=== PATIENT | female | born 1940 | race Caucasian/White ===

== ENCOUNTER 2019-02-07 13:40 | Inpatient (IN) | payer MEDICARE ==
[~2019-02-07] VITALS: Ht 149.9 cm; Wt 63.8 kg
[~2019-02-07 13:40] MED LIST: ALPR0.5T6 PO; AMIT10TA PO; AMLO-150 PO; CALCIUM PO; CARV-39 PO; CARV12.543 PO; CYAN25009 PO; DICL100G19 TD; FLUO20CA8 PO; FLUT9.9S INH; FURO20TA3 PO; HYDR25TA6 PO; LANS30CA PO; LEVO25TA4 PO; LEVO750T26 PO; LISI5TAB7 PO; METH4TAB7 PO; METH500T7 PO; OMEG1CAP6 PO; OXCA150T18 PO; OXYC-302 PO; OXYC-307 PO; OXYC10TA47 PO; OXYC5TAB3 PO; POLY17PO5 PO; POTA10CA PO; PRAV40TA2 PO; PREG25CA PO; SENN8.6T98 PO; SULF1TAB24 PO
--- NOTE | 2019-02-07 14:37 | NUR ---
ASSUMED CARE OF PT AT THIS TIME FROM LOBBY. AMBULATORY TO ROOM WITH STEADY GAIT AND TO RESTROOM FOR CLEAN CATCH UA. CLEAN CATCH UA COLLECTED. 78 Y/O F PRESENT TO ER FROM FOR "ABD PAIN STARTING YESTERDAY, IT'S INTENSE, I HAD A BOWEL MOVEMENT YESTERDAY BUT NOTHING SINCE AND I'M NOT REALLY PASSING GAS, I'VE HAD TROUBLES WITH MY BOWELS SINCE I WAS A CHILD." CONT PULSE OX, BP MONITORS APPLIED. VSS. A&OX4. DAUGHTER AT BEDSIDE. CALL LIGHT IN REACH. RATES ABD PAIN 10/10, BOWEL SOUNDS ACTIVE. ABD SOFT, TENDER TO PALPATION IN ALL QUADRATS. DR. CROUCH AT BEDSIDE FOR EVALUATION. DAUGHTER AT BEDSIDE. FALL PRECUATIONS IN PLACE.
[2019-02-07] MEDS ORDERED: ONDANSETRON 2MG/ML, 2ML ONE (14:50)
[2019-02-07] MEDS ORDERED: HYDROmorphone 1 MG/ML, 1ML ONE (14:50)
[2019-02-07 14:54] LABS: BASOPHILS # (AUTO) 0.03 x10^3/uL (0-0.1); BASOPHILS % (AUTO) 0 % (0-1); EOSINOPHILS # (AUTO) 0.43 x10^3/uL (0-0.4); EOSINOPHILS % (AUTO) 3 % (1-7); LYMPHOCYTES # (AUTO) 1.75 x10^3/uL (1-3.4); LYMPHOCYTES % (AUTO) 11 % (22-44); MD NO; MEAN CORPUSCULAR HEMOGLOBIN 30.7 pg (27.0-34.8); MEAN CORPUSCULAR HGB CONC 33.6 g/dL (32.4-35.8); MEAN CORPUSCULAR VOLUME 91.3 fL (80-100); MONOCYTES # (AUTO) 0.88 x10^3/uL (0.2-0.8); MONOCYTES % (AUTO) 6 % (2-9); NEUTROPHILS # (AUTO) 12.39 x10^3/uL (1.8-6.8); NEUTROPHILS % (AUTO) 80 % (42-75); PLATELET COUNT 269 x10^3/uL (130-400); RED BLOOD COUNT 3.97 x10^6/uL (3.82-5.3); RED CELL DISTRIBUTION WIDTH 12.4 % (9.6-15.2)
[2019-02-07 14:56] LABS: MICROSCOPIC INDICATED
[2019-02-07 14:57] LABS: CULTURE INDICATED? YES
[2019-02-07] MEDS ORDERED: SODIUM CHLORIDE FLUSH 10ML SYR IVF ONE (15:00)
[2019-02-07] MEDS ORDERED: ONDANSETRON 2MG/ML, 2ML IVPush ONE (15:00)
[2019-02-07] MEDS ORDERED: HYDROmorphone 2 MG/ML, 1ML IVPush PRN (15:00)
--- NOTE | 2019-02-07 15:00 | NUR ---
REPORT AND CARE TO BREAK EDUARDO REED.
[2019-02-07 15:04] LABS: ALBUMIN 3.1 g/dL (3.4-5.0); ANION GAP 6 mmol/L (5-15); CALCIUM 8.9 mg/dL (8.5-10.1); CHLORIDE 107 mmol/L (98-107)
--- NOTE | 2019-02-07 15:05 | NUR ---
BREAK RN FOR IV START AND [employer] OPERATOR
[2019-02-07 15:08] LABS: ALANINE AMINOTRANSFERASE 14 U/L (12-78); ALKALINE PHOSPHATASE 120 U/L (45-117); BILIRUBIN,TOTAL 0.8 mg/dL (0.2-1.0); CREATININE 0.97 mg/dL (0.55-1.02); TOTAL PROTEIN 7.1 g/dL (6.4-8.2)
--- NOTE | 2019-02-07 15:40 | NUR ---
PT IN CT.
--- NOTE | 2019-02-07 15:55 | NUR ---
PT BACK CT, NAD NOTED. RESP REGULAR AND UNLABORED. FAMILY AT BEDSIDE. VSS. DENIES NEED TO USE RESTROOM. PT IN GOOD SPIRITS AND TALKATIVE.
[2019-02-07] MEDS ORDERED: OMNIPAQUE 350 MG/ML, 100ML BOTTLE ONE (16:00)
--- NOTE | 2019-02-07 16:19 | NUR ---
DR. CROUCH AT BEDSIDE FOR RECHECK, DISCUSSING POC WITH PT AND DAUGHTER, RECOMMENDING ADMISSION TO HOSPITAL.
--- NOTE | 2019-02-07 16:28 | NUR ---
LAB AT BEDSIDE FOR BLOOD CULTURES, BLOOD CULTURES TO BE DRAWNX2 PRIOR TO ANTIBIOTIC ADMIN PER DR. CROUCH.
[2019-02-07] MEDS ORDERED: CEFTRIAXONE PMX 1GM/50ML 50 ML ONE (16:29)
[2019-02-07] MEDS ORDERED: METRONIDAZOLE PMX 500MG/100ML 100 ML IVPB ONE (16:30)
[2019-02-07] MEDS ORDERED: CEFTRIAXONE PMX 1GM/50ML 50 ML IVPB ONE (16:30)
--- NOTE | 2019-02-07 16:52 | NUR ---
IV ANTIBIOTIC INFUSING PER ORDER ON IV PUMP, VERIFIED BLOOD CULTURES DRAWNX2 PRIOR TO ADMIN. TO ADMIN FLAGYL AFTER ROCEPHIN COMPLETED, DISCUSSED PT PCN ALLERGY WITH DR. CROUCH, AWARE, ROCEPHIN ADMIN PER MD ORDER. PT PROVIDED WATER PER REQUEST AND DR. CROUCH, TOLATERATING PO WELL. DENIES NEED TO USE RESTROOM. CONTINUES TO REFUSE NEED FOR PAIN MEDICATION, TO CALL IF PAIN MEDICATION NEEDED. CALL LIGHT IN REACH. VSS.
[2019-02-07] MEDS ORDERED: SODIUM CHLORIDE FLUSH 10ML SYR IVF PRN (17:00)
--- NOTE | 2019-02-07 17:20 | NUR ---
ADMITTING PROVIDER AT BEDSIDE FOR EVALUATION. IV ROCEPHINE CONTINUES INFUSING, PT IV POSITIONAL TO WRIST MOVEMENT, TOWEL PLACED TO ASSIST PT TO KEEP WRIST/IV PATENT. CALL LIGHT IN REACH. VSS. FALL PRECAUTIONS IN PLACE.
--- NOTE | 2019-02-07 17:28 | NUR ---
ROOM 355 RECEIVED, PHONE/VERBAL REPORT TO NILA CLARK. DISCUSSED NEED FOR IV FLAGYL S/P ROCEPHIN ANTIBIOTIC COMPLETION. NILA AWARE, TO ADMIN ONCE ROCEPHIN COMPLETED. PER DR. CROUCH PT MAY BE TRANSFERED TO FLOOR PRIOR TO FLAGYL ADMIN ROCEPHIN STILL INFUSING. PT AWAITING TRANSPORT.
[2019-02-07] MEDS ORDERED: DOCUSATE 100 MG CAPSULE PO PRN (17:30)
[2019-02-07] MEDS ORDERED: morphine SULFATE 10 MG/ML, 1ML IVPush PRN (17:30)
[2019-02-07] MEDS ORDERED: POLYETHYLENE GLYCOL 17 GM PACKET PO PRN (17:30)
[2019-02-07] MEDS: CEFTRIAXONE PMX 2GM/50ML 50 ML IV SCH (17:30)
[2019-02-07] MEDS ORDERED: hydrALAzine 20 MG/ML, 1ML IVPush PRN (17:30)
[2019-02-07] MEDS ORDERED: LABETALOL 5MG/ML, 20ML IVPush PRN (17:30)
[2019-02-07] MEDS ORDERED: BISACODYL 10 MG SUPP PR PRN (17:30)
[2019-02-07] MEDS ORDERED: GABAPENTIN 300 MG CAPSULE PO PRN (17:30)
[2019-02-07] MEDS: METRONIDAZOLE PMX 500MG/100ML 100 ML IV SCH (18:33)
[2019-02-07] MEDS: HEPARIN 5,000 UNITS/ML, 1ML SQ SCH (18:34)
[2019-02-07] MEDS: SODIUM CHLORIDE 0.9% 1,000 ML IV SCH (18:34)
[2019-02-07 19:18] LABS: BASOPHILS # (AUTO) 0.05 x10^3/uL (0-0.1); BASOPHILS % (AUTO) 0 % (0-1); EOSINOPHILS # (AUTO) 0.46 x10^3/uL (0-0.4); EOSINOPHILS % (AUTO) 3 % (1-7); LYMPHOCYTES # (AUTO) 2.04 x10^3/uL (1-3.4); LYMPHOCYTES % (AUTO) 15 % (22-44); MD NO; MEAN CORPUSCULAR HEMOGLOBIN 30.8 pg (27.0-34.8); MEAN CORPUSCULAR HGB CONC 33.8 g/dL (32.4-35.8); MEAN CORPUSCULAR VOLUME 91.2 fL (80-100); MEAN PLATELET VOLUME 7.6 fL (7.4-10.4); MONOCYTES # (AUTO) 0.85 x10^3/uL (0.2-0.8); MONOCYTES % (AUTO) 6 % (2-9); NEUTROPHILS # (AUTO) 10.08 x10^3/uL (1.8-6.8); NEUTROPHILS % (AUTO) 75 % (42-75); PLATELET COUNT 246 x10^3/uL (130-400); RED BLOOD COUNT 3.72 x10^6/uL (3.82-5.3)
[2019-02-07 19:28] LABS: GAMMA GLUTAMYL TRANSPEPTIDASE 16 U/L (5-55)
[2019-02-07 19:37] LABS: FREE T4 (FREE THYROXINE) 2.54 ng/dL (0.76-1.46)
[2019-02-07 19:39] LABS: THYROID STIMULATING HORMONE < 0.005 mIU/L (0.358-3.740)
[2019-02-07] MEDS ORDERED: CARVEDILOL 12.5 MG TABLET PO SCH (21:00)
[2019-02-07 21:14] VITALS: BP 116/58
[2019-02-07] MEDS: FAMOTIDINE 20 MG/2 ML IVPush SCH (21:38)
[2019-02-07] MEDS: PRAVASTATIN 40 MG TABLET PO SCH (21:39)
[2019-02-07] MEDS: CARVEDILOL 12.5 MG TABLET PO SCH (21:39)
[2019-02-07] MEDS: PREGABALIN 25 MG CAPSULE PO SCH (21:39)
[2019-02-08] MEDS: METRONIDAZOLE PMX 500MG/100ML 100 ML IV SCH ×4 (00:16→18:35)
[2019-02-08 04:00] VITALS: BP 108/51
[2019-02-08] MEDS: SODIUM CHLORIDE 0.9% 1,000 ML IV SCH ×2 (05:00→14:22)
[2019-02-08 05:20] LABS: ALBUMIN 2.6 g/dL (3.4-5.0); ANION GAP 6 mmol/L (5-15); CALCIUM 8.4 mg/dL (8.5-10.1); CHLORIDE 111 mmol/L (98-107)
[2019-02-08 05:25] LABS: ALANINE AMINOTRANSFERASE 9 U/L (12-78); ALKALINE PHOSPHATASE 103 U/L (45-117); BILIRUBIN,TOTAL 0.8 mg/dL (0.2-1.0); CREATININE 0.83 mg/dL (0.55-1.02); TOTAL PROTEIN 5.9 g/dL (6.4-8.2)
[2019-02-08] MEDS: HEPARIN 5,000 UNITS/ML, 1ML SQ SCH ×3 (06:03→22:00)
[2019-02-08 07:48] VITALS: BP 96/56
[2019-02-08] MEDS ORDERED: LISINOPRIL 5 MG TABLET PO SCH (09:00)
[2019-02-08] MEDS ORDERED: PREGABALIN 25 MG CAPSULE PO SCH (09:00)
[2019-02-08] MEDS ORDERED: LEVOTHYROXINE 100 MCG TABLET PO SCH (09:00)
[2019-02-08] MEDS: FLUOXETINE HCL 20 MG CAPSULE PO SCH (09:39)
[2019-02-08] MEDS: OXCARBAZEPINE 150 MG TABLET PO SCH (09:39)
[2019-02-08] MEDS: FAMOTIDINE 20 MG/2 ML IVPush SCH ×2 (09:39→21:05)
[2019-02-08] MEDS: CYANOCOBALAMIN 1,000 MCG TABLET PO SCH (09:40)
[2019-02-08] MEDS: CARVEDILOL 12.5 MG TABLET PO SCH ×2 (09:41→19:17)
[2019-02-08] MEDS: AMITRIPTYLINE 10 MG TABLET PO SCH (09:41)
[2019-02-08] MEDS: ACETAMINOPHEN 325 MG TABLET PO PRN (09:51)
[2019-02-08] MEDS ORDERED: LORazepam 2 MG/ML, 1ML ONE (11:06)
[2019-02-08 14:29] VITALS: BP 95/45
[2019-02-08] MEDS: CEFTRIAXONE PMX 2GM/50ML 50 ML IV SCH (17:49)
[2019-02-08 19:08] VITALS: BP 104/43
[2019-02-08] MEDS: PRAVASTATIN 40 MG TABLET PO SCH (21:05)
[2019-02-08] MEDS: PREGABALIN 25 MG CAPSULE PO SCH (21:05)
[2019-02-09] MEDS: SODIUM CHLORIDE 0.9% 1,000 ML IV SCH ×2 (00:05→15:26)
[2019-02-09] MEDS: METRONIDAZOLE PMX 500MG/100ML 100 ML IV SCH ×2 (00:05→06:02)
[2019-02-09] MEDS: ACETAMINOPHEN 325 MG TABLET PO PRN ×2 (00:54→21:39)
[2019-02-09 02:29] VITALS: BP 103/53
[2019-02-09 05:00] LABS: BASOPHILS # (AUTO) 0.02 x10^3/uL (0-0.1); BASOPHILS % (AUTO) 0 % (0-1); EOSINOPHILS # (AUTO) 0.42 x10^3/uL (0-0.4); EOSINOPHILS % (AUTO) 7 % (1-7); LYMPHOCYTES # (AUTO) 1.75 x10^3/uL (1-3.4); LYMPHOCYTES % (AUTO) 28 % (22-44); MD NO; MEAN CORPUSCULAR HGB CONC 33.9 g/dL (32.4-35.8); MEAN CORPUSCULAR VOLUME 91.4 fL (80-100); MEAN PLATELET VOLUME 7.8 fL (7.4-10.4); MONOCYTES % (AUTO) 10 % (2-9); NEUTROPHILS # (AUTO) 3.51 x10^3/uL (1.8-6.8); NEUTROPHILS % (AUTO) 56 % (42-75); PLATELET COUNT 224 x10^3/uL (130-400); RED BLOOD COUNT 3.24 x10^6/uL (3.82-5.3); RED CELL DISTRIBUTION WIDTH 12.7 % (9.6-15.2)
[2019-02-09 05:08] LABS: ALBUMIN 2.4 g/dL (3.4-5.0); ANION GAP 5 mmol/L (5-15); CALCIUM 8.5 mg/dL (8.5-10.1); CHLORIDE 114 mmol/L (98-107)
[2019-02-09 05:09] LABS: CREATININE 0.73 mg/dL (0.55-1.02)
[2019-02-09] MEDS: HEPARIN 5,000 UNITS/ML, 1ML SQ SCH ×3 (06:02→21:05)
[2019-02-09 08:23] VITALS: BP 120/60
[2019-02-09] MEDS: CARVEDILOL 12.5 MG TABLET PO SCH ×2 (09:07→21:05)
[2019-02-09] MEDS: OXCARBAZEPINE 150 MG TABLET PO SCH (09:07)
[2019-02-09] MEDS: CYANOCOBALAMIN 1,000 MCG TABLET PO SCH (09:08)
[2019-02-09] MEDS: FAMOTIDINE 20 MG/2 ML IVPush SCH ×2 (09:08→21:05)
[2019-02-09] MEDS: FLUOXETINE HCL 20 MG CAPSULE PO SCH (09:08)
[2019-02-09] MEDS: AMITRIPTYLINE 10 MG TABLET PO SCH (09:08)
[2019-02-09] MEDS ORDERED: METRONIDAZOLE PMX 500MG/100ML 100 ML IV SCH (09:30)
[2019-02-09] MEDS: metroNIDAZOLE 500 MG TABLET PO SCH ×2 (09:56→17:56)
[2019-02-09] MEDS: CEFDINIR 300 MG CAPSULE PO SCH ×2 (09:56→21:04)
[2019-02-09] MEDS ORDERED: OMNIPAQUE 350 MG/ML, 100ML BOTTLE ONE (12:48)
[2019-02-09 13:27] VITALS: BP 127/64
[2019-02-09 18:47] VITALS: BP 123/58
[2019-02-09] MEDS: PREGABALIN 25 MG CAPSULE PO SCH (21:05)
[2019-02-09] MEDS: PRAVASTATIN 40 MG TABLET PO SCH (21:05)
[2019-02-09] MEDS: FLUTICASONE NASAL SPRAY 16GM NAS PRN (21:39)
[2019-02-10] MEDS: SODIUM CHLORIDE 0.9% 1,000 ML IV SCH ×3 (00:03→21:01)
[2019-02-10 02:26] VITALS: BP 121/60
[2019-02-10] MEDS: HEPARIN 5,000 UNITS/ML, 1ML SQ SCH ×3 (05:04→21:01)
[2019-02-10] MEDS: metroNIDAZOLE 500 MG TABLET PO SCH ×3 (05:04→21:02)
[2019-02-10 05:35] LABS: ALBUMIN 2.8 g/dL (3.4-5.0); ANION GAP 6 mmol/L (5-15); CALCIUM 8.5 mg/dL (8.5-10.1); CHLORIDE 115 mmol/L (98-107); CREATININE 0.64 mg/dL (0.55-1.02)
[2019-02-10] MEDS ORDERED: POTASSIUM CHLORIDE 60 MEQ in SODIUM CHLORIDE 0.9% 1,000 ML IV ONE (06:30)
[2019-02-10 08:15] VITALS: BP 148/82
[2019-02-10] MEDS: CARVEDILOL 12.5 MG TABLET PO SCH ×2 (09:05→21:01)
[2019-02-10] MEDS: CYANOCOBALAMIN 1,000 MCG TABLET PO SCH (09:05)
[2019-02-10] MEDS: FLUOXETINE HCL 20 MG CAPSULE PO SCH (09:05)
[2019-02-10] MEDS: FAMOTIDINE 20 MG/2 ML IVPush SCH ×2 (09:05→21:01)
[2019-02-10] MEDS: CEFDINIR 300 MG CAPSULE PO SCH ×2 (09:05→21:01)
[2019-02-10] MEDS: OXCARBAZEPINE 150 MG TABLET PO SCH (09:05)
[2019-02-10] MEDS: AMITRIPTYLINE 10 MG TABLET PO SCH (09:05)
[2019-02-10] MEDS: DOXYCYCLINE 100MG TABLET PO SCH ×2 (09:11→21:01)
[2019-02-10 14:02] VITALS: BP 125/71
[2019-02-10] MEDS ORDERED: ATOR20TA86 PO (17:21)
[2019-02-10] MEDS ORDERED: AMIT100T PO (17:21)
[2019-02-10] MEDS ORDERED: LANS30TA8 PO (17:21)
[2019-02-10] MEDS ORDERED: LEVO100V PO (17:21)
[2019-02-10] MEDS ORDERED: FURO40TA6 PO (17:21)
[2019-02-10] MEDS ORDERED: CARV25TA PO (17:21)
[2019-02-10] MEDS ORDERED: AMLO5TAB10 PO (17:21)
[2019-02-10] MEDS ORDERED: CYCL5TAB PO (17:21)
[2019-02-10] MEDS ORDERED: PREG20SO PO (17:21)
[2019-02-10 17:51] LABS: BASOPHILS # (AUTO) 0.02 x10^3/uL (0-0.1); BASOPHILS % (AUTO) 1 % (0-1); EOSINOPHILS % (AUTO) 6 % (1-7); LYMPHOCYTES # (AUTO) 1.58 x10^3/uL (1-3.4); LYMPHOCYTES % (AUTO) 29 % (22-44); MD NO; MEAN CORPUSCULAR HEMOGLOBIN 30.7 pg (27.0-34.8); MEAN CORPUSCULAR HGB CONC 33.7 g/dL (32.4-35.8); MEAN PLATELET VOLUME 7.6 fL (7.4-10.4); MONOCYTES # (AUTO) 0.55 x10^3/uL (0.2-0.8); MONOCYTES % (AUTO) 10 % (2-9); NEUTROPHILS # (AUTO) 2.96 x10^3/uL (1.8-6.8); NEUTROPHILS % (AUTO) 55 % (42-75); PLATELET COUNT 277 x10^3/uL (130-400); RED CELL DISTRIBUTION WIDTH 12.5 % (9.6-15.2)
[2019-02-10 18:38] LABS: FREE T4 (FREE THYROXINE) 1.97 ng/dL (0.76-1.46)
[2019-02-10 18:39] LABS: THYROID STIMULATING HORMONE < 0.005 mIU/L (0.358-3.740)
[2019-02-10 18:59] VITALS: BP 106/47
[2019-02-10] MEDS: PRAVASTATIN 40 MG TABLET PO SCH (21:01)
[2019-02-10] MEDS: PREGABALIN 25 MG CAPSULE PO SCH (21:01)
[2019-02-10 22:36] LABS: MICROSCOPIC AUTO
[2019-02-10 22:39] LABS: CULTURE INDICATED? YES
[2019-02-11 03:24] VITALS: BP 99/60
[2019-02-11] MEDS: metroNIDAZOLE 500 MG TABLET PO SCH ×3 (05:02→22:50)
[2019-02-11] MEDS: HEPARIN 5,000 UNITS/ML, 1ML SQ SCH ×3 (05:03→22:49)
[2019-02-11 06:18] LABS: BASOPHILS # (AUTO) 0.02 x10^3/uL (0-0.1); BASOPHILS % (AUTO) 0 % (0-1); EOSINOPHILS # (AUTO) 0.29 x10^3/uL (0-0.4); EOSINOPHILS % (AUTO) 6 % (1-7); LYMPHOCYTES # (AUTO) 1.68 x10^3/uL (1-3.4); LYMPHOCYTES % (AUTO) 34 % (22-44); MD NO; MEAN CORPUSCULAR HEMOGLOBIN 30.2 pg (27.0-34.8); MEAN CORPUSCULAR HGB CONC 33.2 g/dL (32.4-35.8); MEAN CORPUSCULAR VOLUME 90.9 fL (80-100); MEAN PLATELET VOLUME 7.8 fL (7.4-10.4); MONOCYTES % (AUTO) 12 % (2-9); NEUTROPHILS # (AUTO) 2.29 x10^3/uL (1.8-6.8); NEUTROPHILS % (AUTO) 47 % (42-75); PLATELET COUNT 274 x10^3/uL (130-400); RED BLOOD COUNT 3.53 x10^6/uL (3.82-5.3); RED CELL DISTRIBUTION WIDTH 13.1 % (9.6-15.2)
[2019-02-11 06:30] LABS: ALANINE AMINOTRANSFERASE 13 U/L (12-78); ALBUMIN 2.7 g/dL (3.4-5.0); ANION GAP 7 mmol/L (5-15); CALCIUM 8.5 mg/dL (8.5-10.1); CHLORIDE 111 mmol/L (98-107)
[2019-02-11 06:33] LABS: ALKALINE PHOSPHATASE 95 U/L (45-117); BILIRUBIN,TOTAL 0.4 mg/dL (0.2-1.0)
[2019-02-11 06:41] VITALS: BP 129/61
[2019-02-11] MEDS ORDERED: POTASSIUM CHLORIDE 20 MEQ TAB.ER.PRT PO ONE (07:00)
[2019-02-11] MEDS: SODIUM CHLORIDE 0.9% 1,000 ML IV SCH ×2 (07:37→17:32)
[2019-02-11] MEDS: OXCARBAZEPINE 150 MG TABLET PO SCH (07:38)
[2019-02-11] MEDS: DOXYCYCLINE 100MG TABLET PO SCH ×2 (07:38→22:50)
[2019-02-11] MEDS: AMITRIPTYLINE 10 MG TABLET PO SCH (07:38)
[2019-02-11] MEDS: CARVEDILOL 12.5 MG TABLET PO SCH ×2 (07:38→22:50)
[2019-02-11] MEDS: FAMOTIDINE 20 MG/2 ML IVPush SCH ×2 (07:38→22:50)
[2019-02-11] MEDS: CYANOCOBALAMIN 1,000 MCG TABLET PO SCH (07:38)
[2019-02-11] MEDS: CEFDINIR 300 MG CAPSULE PO SCH ×2 (07:39→22:49)
[2019-02-11] MEDS: FLUOXETINE HCL 20 MG CAPSULE PO SCH (07:55)
[2019-02-11 12:13] VITALS: BP 141/77
[2019-02-11 19:01] VITALS: BP 140/48
[2019-02-11] MEDS: PREGABALIN 25 MG CAPSULE PO SCH (22:49)
[2019-02-11] MEDS: PRAVASTATIN 40 MG TABLET PO SCH (22:50)
[2019-02-11] MEDS: FLUTICASONE NASAL SPRAY 16GM NAS PRN (22:54)
[2019-02-12 01:15] VITALS: BP 116/48
[2019-02-12] MEDS: SODIUM CHLORIDE 0.9% 1,000 ML IV SCH (04:56)
[2019-02-12] MEDS: HEPARIN 5,000 UNITS/ML, 1ML SQ SCH (05:00)
[2019-02-12] MEDS: metroNIDAZOLE 500 MG TABLET PO SCH ×2 (05:00→13:05)
[2019-02-12 07:54] VITALS: BP 135/70
[2019-02-12] MEDS: FAMOTIDINE 20 MG/2 ML IVPush SCH (09:48)
[2019-02-12] MEDS: FLUOXETINE HCL 20 MG CAPSULE PO SCH (09:50)
[2019-02-12] MEDS: CEFDINIR 300 MG CAPSULE PO SCH (09:50)
[2019-02-12] MEDS: OXCARBAZEPINE 150 MG TABLET PO SCH (09:52)
[2019-02-12] MEDS: CARVEDILOL 12.5 MG TABLET PO SCH (09:52)
[2019-02-12] MEDS: DOXYCYCLINE 100MG TABLET PO SCH (09:52)
[2019-02-12] MEDS: AMITRIPTYLINE 10 MG TABLET PO SCH (09:52)
[2019-02-12] MEDS: CYANOCOBALAMIN 1,000 MCG TABLET PO SCH (09:52)
[2019-02-12] MEDS ORDERED: METR500T PO (12:11)
[2019-02-12] MEDS ORDERED: CEFD300C37 PO (12:11)
[2019-02-12] MEDS ORDERED: LEVO75TA PO (12:13)
== END 2019-02-12 13:38 | disposition home health service (06) | DRG 391 ==
LOC: ED 16:48 → INTOOBSV 16:49 → 3NE 16:49 → OBSVTOIN 16:49
PROVIDERS: ADMIT Hospitalist; ATTEND Hospitalist
DX: A09 Infectious gastroenteritis and colitis, unspecified (principal); J12.9 Viral pneumonia, unspecified; G93.40 Encephalopathy, unspecified; K80.20 Calculus of gallbladder without cholecystitis without obstruction; N30.90 Cystitis, unspecified without hematuria; B96.20 Unspecified Escherichia coli [E. coli] as the cause of diseases classified elsewhere; G89.4 Chronic pain syndrome; E03.9 Hypothyroidism, unspecified; E05.90 Thyrotoxicosis, unspecified without thyrotoxic crisis or storm; I10 Essential (primary) hypertension; Z60.2 Problems related to living alone; F32.9 Major depressive disorder, single episode, unspecified; M19.90 Unspecified osteoarthritis, unspecified site; M54.9 Dorsalgia, unspecified; E87.6 Hypokalemia; M54.2 Cervicalgia; E78.5 Hyperlipidemia, unspecified; G25.81 Restless legs syndrome; K59.09 Other constipation; Z88.0 Allergy status to penicillin; Z90.710 Acquired absence of both cervix and uterus; Z90.49 Acquired absence of other specified parts of digestive tract; Z88.1 Allergy status to other antibiotic agents
CPT/HCPCS: 36415; 70450; 71046; 71275; 74177; 76700; 80048; 80053; 81001; 82040; 82140; 82306; 82977; 83605; 83690; 83735; 84100; 84439; 84443; 85025; 85379; 87040; 87077; 87086; 87186; 90656; 93005; 96374; 96375; 99285; G0378; J0696; J1170; J1644; J2405; J3480; Q9967; 92522-GN; J3490; J7030

== ENCOUNTER 2019-06-01 11:57 | Inpatient (IN) | payer MEDICARE ==
[~2019-06-01] VITALS: Ht 157.5 cm; Wt 63.1 kg
[~2019-06-01 11:57] MED LIST changes: +AMIT100T PO; +AMLO5TAB10 PO; +ATOR20TA86 PO; +CARV25TA PO; +CEFD300C37 PO; +CYCL5TAB PO; +FURO40TA6 PO; +LANS30TA8 PO; +LEVO100V PO; +LEVO75TA PO; +METR500T PO; +PREG20SO PO
--- NOTE | 2019-06-01 12:25 | NUR ---
TASK RN: THIS IS A 78 Y/O FEMALE THAT ARRIVES TO ED WITH C/O CHEST PAIN AND SOB. PT REPROTS HER COUGHING SPELLS ARE MAKING HER DIZZY. PT DOES REPORT THAT SHE HAS BEEN NOT FEELING WELL FOR A FEW DAYS. PT REPORTS GETTING WORSE AND UNABLE TO IMPROVE HER CONDITION. PT CONNECTED TO MONITORS AND CALL LIGHT IN REACH. AWAITING FURTHER ORDERS.
--- NOTE | 2019-06-01 12:27 | NUR ---
REPORT FROM BREAK PRISCA CLARK. ASSUMED CARE OF PATIENT AT THIS TIME. 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 NADN. AWAITING XRAY AND LAB.
[2019-06-01] MEDS ORDERED: AZITHROMYCIN 500 MG in SODIUM CHLORIDE 0.9% 250 ML IV ONE (13:00)
[2019-06-01] MEDS ORDERED: CEFTRIAXONE PMX 1GM/50ML 50 ML IV ONE (13:00)
[2019-06-01] MEDS ORDERED: CEFTRIAXONE PMX 1GM/50ML 50 ML ONE (13:12)
[2019-06-01 13:16] LABS: BASOPHILS # (AUTO) 0.02 x10^3/uL (0-0.1); BASOPHILS % (AUTO) 0 % (0-1); EOSINOPHILS # (AUTO) 0.65 x10^3/uL (0-0.4); EOSINOPHILS % (AUTO) 8 % (1-7); LYMPHOCYTES # (AUTO) 1.73 x10^3/uL (1-3.4); LYMPHOCYTES % (AUTO) 21 % (22-44); MD NO; MEAN CORPUSCULAR HEMOGLOBIN 28.8 pg (27.0-34.8); MEAN CORPUSCULAR HGB CONC 32.5 g/dL (32.4-35.8); MEAN CORPUSCULAR VOLUME 88.7 fL (80-100); MEAN PLATELET VOLUME 6.2 fL (7.4-10.4); MONOCYTES # (AUTO) 0.95 x10^3/uL (0.2-0.8); MONOCYTES % (AUTO) 11 % (2-9); NEUTROPHILS # (AUTO) 5.02 x10^3/uL (1.8-6.8); NEUTROPHILS % (AUTO) 60 % (42-75); PLATELET COUNT 404 x10^3/uL (130-400); RED BLOOD COUNT 4.04 x10^6/uL (3.82-5.3); RED CELL DISTRIBUTION WIDTH 13.5 % (9.6-15.2)
--- NOTE | 2019-06-01 13:22 | NUR ---
IV ESTABLISHED, VS UDATED IN CHART, BLOOD CULTURES DRAWN X 2 PRIOR TO ABX ADMINISTRATION. [facility] AWAITING FURTHER ORDERS.
[2019-06-01 13:27] LABS: ALANINE AMINOTRANSFERASE 17 U/L (12-78); ALBUMIN 3.2 g/dL (3.4-5.0); ANION GAP 8 mmol/L (5-15); CALCIUM 8.7 mg/dL (8.5-10.1); CHLORIDE 99 mmol/L (98-107); CREATININE 1.14 mg/dL (0.55-1.02)
[2019-06-01 13:28] LABS: ALKALINE PHOSPHATASE 131 U/L (45-117); BILIRUBIN,TOTAL 0.3 mg/dL (0.2-1.0); TOTAL PROTEIN 7.7 g/dL (6.4-8.2)
--- NOTE | 2019-06-01 13:43 | NUR ---
RESULTS BACK, CHART UP FOR RECHECK.
--- NOTE | 2019-06-01 14:26 | NUR ---
PATIENT POOR HISTORIAN WITH MEDICATIONS, UNABLE TO COMPLETE MED REC. PATIENT TO CALL DAUGHTER FOR UP TO DATE LIST.
[2019-06-01] MEDS ORDERED: morphine SULFATE 10 MG/ML, 1ML IVPush PRN (14:30)
[2019-06-01] MEDS ORDERED: ONDANSETRON 2MG/ML, 2ML IVPush PRN (14:30)
[2019-06-01] MEDS ORDERED: GABAPENTIN 300 MG CAPSULE PO PRN (14:30)
[2019-06-01] MEDS ORDERED: hydrALAzine 20 MG/ML, 1ML IVPush PRN (14:30)
[2019-06-01] MEDS ORDERED: ACETAMINOPHEN 325 MG TABLET PO PRN (14:30)
--- NOTE | 2019-06-01 14:48 | NUR ---
PATIENT STATES SHE IS UNABLE TO GET AHOLD OF DAUGHTER FOR UPDATED MED LIST. PATIENT SITTING COMFORTABLY, RESTING IN GURNEY, A+OX4.
--- NOTE | 2019-06-01 15:08 | NUR ---
REPORT TO EDUARDO VAUGHN. PATIENT UPDATED ON POC, NADN. AWAITING TRANSPORT.
--- NOTE | 2019-06-01 15:11 | NUR ---
PATIENT BEING TRANFERRED/ADMITTED TO HOSPITAL BED UPSTAIRS AT THIS TIME.
[2019-06-01 15:31] VITALS: BP 111/71
[2019-06-01] MEDS: D5%-0.45NACL+KCL 20MEQ 1,000 ML IV SCH (17:03)
[2019-06-01 18:54] VITALS: BP 127/68
[2019-06-01 19:54] LABS: TROPONIN I < 0.015 ng/mL (0.000-0.045)
[2019-06-01] MEDS: CARVEDILOL 12.5 MG TABLET PO SCH (20:02)
[2019-06-02 00:48] LABS: TROPONIN I < 0.015 ng/mL (0.000-0.045)
[2019-06-02 01:48] VITALS: BP 117/71
[2019-06-02] MEDS: LEVOTHYROXINE 75 MCG TABLET PO SCH (05:03)
[2019-06-02] MEDS: D5%-0.45NACL+KCL 20MEQ 1,000 ML IV SCH ×2 (05:03→21:47)
[2019-06-02 05:28] LABS: BASOPHILS # (AUTO) 0.02 x10^3/uL (0-0.1); BASOPHILS % (AUTO) 0 % (0-1); EOSINOPHILS # (AUTO) 0.62 x10^3/uL (0-0.4); EOSINOPHILS % (AUTO) 10 % (1-7); LYMPHOCYTES # (AUTO) 1.39 x10^3/uL (1-3.4); LYMPHOCYTES % (AUTO) 22 % (22-44); MD NO; MEAN CORPUSCULAR HEMOGLOBIN 29.1 pg (27.0-34.8); MEAN CORPUSCULAR HGB CONC 32.6 g/dL (32.4-35.8); MEAN CORPUSCULAR VOLUME 89.4 fL (80-100); MEAN PLATELET VOLUME 6.4 fL (7.4-10.4); MONOCYTES # (AUTO) 0.75 x10^3/uL (0.2-0.8); MONOCYTES % (AUTO) 12 % (2-9); NEUTROPHILS # (AUTO) 3.47 x10^3/uL (1.8-6.8); NEUTROPHILS % (AUTO) 56 % (42-75); PLATELET COUNT 366 x10^3/uL (130-400); RED BLOOD COUNT 3.87 x10^6/uL (3.82-5.3); RED CELL DISTRIBUTION WIDTH 13.7 % (9.6-15.2)
[2019-06-02 05:33] LABS: ANION GAP 5 mmol/L (5-15); CALCIUM 8.7 mg/dL (8.5-10.1); CHLORIDE 103 mmol/L (98-107); CREATININE 1.01 mg/dL (0.55-1.02)
[2019-06-02] MEDS ORDERED: PANTOPROZOLE 40MG TABLET PO SCH (07:00)
[2019-06-02 07:46] VITALS: BP 138/77
[2019-06-02] MEDS: OXCARBAZEPINE 150 MG TABLET PO SCH (08:09)
[2019-06-02] MEDS: LISINOPRIL 5 MG TABLET PO SCH (08:09)
[2019-06-02] MEDS: AMLODIPINE 5 MG TABLET PO SCH (08:09)
[2019-06-02] MEDS: FLUOXETINE HCL 20 MG CAPSULE PO SCH (08:09)
[2019-06-02] MEDS: OMEGA-3/FISH OIL CAPSULE PO SCH (08:10)
[2019-06-02] MEDS: ATORVASTATIN 20 MG TABLET PO SCH (08:10)
[2019-06-02] MEDS: AMITRIPTYLINE 10 MG TABLET PO SCH (08:10)
[2019-06-02] MEDS: CARVEDILOL 12.5 MG TABLET PO SCH ×2 (08:10→21:47)
[2019-06-02 12:42] VITALS: BP 128/65
[2019-06-02] MEDS: CEFTRIAXONE PMX 1GM/50ML 50 ML IV SCH (15:52)
[2019-06-02] MEDS: AZITHROMYCIN 500 MG in SODIUM CHLORIDE 0.9% 250 ML IV SCH (16:46)
[2019-06-02 20:12] LABS: MICROSCOPIC AUTO
[2019-06-02 20:21] LABS: CULTURE INDICATED? YES
[2019-06-02 21:12] VITALS: BP 118/67
[2019-06-02] MEDS: PREGABALIN 25 MG CAPSULE PO SCH (21:47)
[2019-06-02] MEDS: GUAIFENESIN/DM 200-20MG, 10ML UDC PO PRN (22:02)
[2019-06-03 01:30] VITALS: BP 111/67
[2019-06-03] MEDS: LEVOTHYROXINE 75 MCG TABLET PO SCH (05:48)
[2019-06-03] MEDS: GUAIFENESIN/DM 200-20MG, 10ML UDC PO PRN ×2 (06:37→12:51)
[2019-06-03 08:08] VITALS: BP 114/65
[2019-06-03] MEDS: AMLODIPINE 5 MG TABLET PO SCH (09:22)
[2019-06-03] MEDS: OMEGA-3/FISH OIL CAPSULE PO SCH (09:22)
[2019-06-03] MEDS: LISINOPRIL 5 MG TABLET PO SCH (09:22)
[2019-06-03] MEDS: FLUOXETINE HCL 20 MG CAPSULE PO SCH (09:22)
[2019-06-03] MEDS: AMITRIPTYLINE 10 MG TABLET PO SCH (09:22)
[2019-06-03] MEDS: ATORVASTATIN 20 MG TABLET PO SCH (09:22)
[2019-06-03] MEDS: OXCARBAZEPINE 150 MG TABLET PO SCH (09:22)
[2019-06-03] MEDS: PREGABALIN 25 MG CAPSULE PO SCH (09:23)
[2019-06-03] MEDS: CARVEDILOL 12.5 MG TABLET PO SCH (09:23)
[2019-06-03] MEDS ORDERED: POLYETHYLENE GLYCOL 17 GM PACKET NG PRN (10:30)
[2019-06-03] MEDS ORDERED: PANTOPRAZOLE 40 MG IV IVPush SCH (10:30)
[2019-06-03] MEDS: D5%-0.45NACL+KCL 20MEQ 1,000 ML IV SCH (10:32)
[2019-06-03] MEDS ORDERED: CEFD300C37 PO (12:08)
[2019-06-03] MEDS ORDERED: AZIT500T5 PO (12:08)
[2019-06-03 14:47] VITALS: BP 115/63
[2019-06-03] MEDS: CEFTRIAXONE PMX 1GM/50ML 50 ML IV SCH (14:58)
[2019-06-03] MEDS: AZITHROMYCIN 500 MG in SODIUM CHLORIDE 0.9% 250 ML IV SCH (15:41)
== END 2019-06-03 17:22 | disposition home or self-care (01) | DRG 682 ==
LOC: ED 13:48 → EDIP 14:26 → 3NW 14:35
PROVIDERS: ADMIT Hospitalist; ATTEND Hospitalist
DX: N17.0 Acute kidney failure with tubular necrosis (principal); J15.9 Unspecified bacterial pneumonia; F13.20 Sedative, hypnotic or anxiolytic dependence, uncomplicated; Z88.0 Allergy status to penicillin; Z91.018 Allergy to other foods; D64.9 Anemia, unspecified; E03.9 Hypothyroidism, unspecified; E78.5 Hyperlipidemia, unspecified; G25.81 Restless legs syndrome; I11.9 Hypertensive heart disease without heart failure; N95.1 Menopausal and female climacteric states; Z66 Do not resuscitate; Z90.710 Acquired absence of both cervix and uterus
CPT/HCPCS: 36415; 71045; 80048; 80053; 81001; 83605; 84443; 84484; 85025; 87040; 87086; 93005; 93306; 96365; 96375; G0378; J0456; J0696; 92523-GN; C9113; J3480; J7050

== ENCOUNTER 2019-06-29 08:52 | Outpatient (CLI) | payer MEDICARE | END 2019-06-29 23:59 | disposition home or self-care (01) | LOC: CFH 08:52 | PROVIDERS: ATTEND Nurse Practitioner Family | DX: R06.02 Shortness of breath (principal); R91.1 Solitary pulmonary nodule; N20.0 Calculus of kidney; K80.20 Calculus of gallbladder without cholecystitis without obstruction | CPT/HCPCS: 71250 ==

== ENCOUNTER 2019-07-07 11:33 | Emergency (ER) | payer MEDICARE ==
[~2019-07-07] VITALS: Ht 157.5 cm; Wt 80.0 kg
[2019-07-07 19:16] VITALS: BP 152/61
== END 2019-07-07 19:19 | disposition home or self-care (01) ==
LOC: ED 15:58
DX: K80.20 Calculus of gallbladder without cholecystitis without obstruction (principal); I10 Essential (primary) hypertension; E78.5 Hyperlipidemia, unspecified
CPT/HCPCS: 36415; 71275; 74175; 76705; 80053; 83880; 84484; 85025; 93005; 99284; Q9967

== ENCOUNTER 2020-06-19 17:46 | Inpatient (IN) | payer MEDICARE ==
[~2020-06-19] VITALS: Ht 149.9 cm; Wt 71.3 kg
[~2020-06-19 17:46] MED LIST changes: +AZIT500T10 PO; +FLUO20CA23 PO; -FLUO20CA8 PO; -LEVO100V PO; +LEVO100V8 PO
--- NOTE | 2020-06-19 17:50 | NUR ---
PT BIB [facility] FROM HOME FOR C/O DIZZINESS AND MULTIPLE FALLS TODAY. PT THEN WASN'T ABLE TO AMBULATE, STATES, "IT JUST WOULDN'T WORK". ALSO C/O L SIDE/HIP PAIN. NO SHORTENING OF LLE OR OTHER INJURIES NOTED. PT REPORTS GLF 1 MONTH AGO. 12-LEAD UNREMARKABLE PER EMS. PT OX3, CONFUSED AT TIMES, DISORIENTED TO DATE.
--- NOTE | 2020-06-19 18:35 | NUR ---
PT TO XR VIA [facility].
[2020-06-19 18:36] LABS: BASOPHILS # (AUTO) 0.04 x10^3/uL (0-0.1); BASOPHILS % (AUTO) 1 % (0-1); EOSINOPHILS # (AUTO) 0.22 x10^3/uL (0-0.4); EOSINOPHILS % (AUTO) 3 % (1-7); LYMPHOCYTES # (AUTO) 2.18 x10^3/uL (1-3.4); LYMPHOCYTES % (AUTO) 33 % (22-44); MD NO; MEAN CORPUSCULAR VOLUME 84.8 fL (80-100); MEAN PLATELET VOLUME 6.3 fL (7.4-10.4); MONOCYTES # (AUTO) 0.77 x10^3/uL (0.2-0.8); MONOCYTES % (AUTO) 12 % (2-9); NEUTROPHILS # (AUTO) 3.49 x10^3/uL (1.8-6.8); NEUTROPHILS % (AUTO) 52 % (42-75); PLATELET COUNT 344 x10^3/uL (130-400); RED CELL DISTRIBUTION WIDTH 15.5 % (9.6-15.2)
[2020-06-19 18:45] LABS: ALANINE AMINOTRANSFERASE 23 U/L (12-78); ALBUMIN 2.9 g/dL (3.4-5.0); ANION GAP 9 mmol/L (5-15); CALCIUM 8.1 mg/dL (8.5-10.1); CHLORIDE 100 mmol/L (98-107); CREATININE 1.25 mg/dL (0.55-1.02)
[2020-06-19 18:49] LABS: ALKALINE PHOSPHATASE 102 U/L (45-117); BILIRUBIN,TOTAL 0.4 mg/dL (0.2-1.0); TOTAL PROTEIN 7.4 g/dL (6.4-8.2); TROPONIN I < 0.015 ng/mL (0.000-0.045)
--- NOTE | 2020-06-19 19:17 | NUR ---
PT RETURNED FROM XR.
--- NOTE | 2020-06-19 19:40 | NUR ---
ASSISTED PT UP TO [facility]SC, PT WAS ABLE TO GET UP AND STAND AT SIDE OF BED WITHOUT PAIN. INSTRUCTED ON CLEAN CATCH URINE SAMPLE.
[2020-06-19 19:47] LABS: MICROSCOPIC INDICATED
--- NOTE | 2020-06-19 19:52 | NUR ---
PT TO CT VIA [facility].
[2020-06-19] MEDS ORDERED: CEFTRIAXONE PMX 1GM/50ML 50 ML IVPB ONE (20:00)
--- NOTE | 2020-06-19 20:02 | NUR ---
PT RETURNS FROM CT.
--- NOTE | 2020-06-19 20:05 | NUR ---
ASSISTED PT UP TO [facility] [place] AGAIN, PT VOIDED. ASSISTED BACK INTO [facility].
[2020-06-19] MEDS ORDERED: CEFTRIAXONE PMX 1GM/50ML 50 ML ONE (20:07)
[2020-06-19] MEDS ORDERED: AZITHROMYCIN 500 MG in SODIUM CHLORIDE 0.9% 250 ML IV ONE (20:30)
[2020-06-19] MEDS ORDERED: SODIUM CHLORIDE FLUSH 10ML SYR IVF PRN (20:30)
--- NOTE | 2020-06-19 21:05 | NUR ---
PT WATCHING TV IN [facility], LYING ON L SIDE. UNDERSTANDS POC. IV ABX INFUSING.
--- NOTE | 2020-06-19 21:26 | NUR ---
PT REPORTS THAT SHE IS CURRENTLY TAKING AN ANTIBIOTIC FOR A UTI. REPORTED TO SARAVANAN CLARK UPSTAIRS.
--- NOTE | 2020-06-19 21:40 | NUR ---
ADMITTING MD AT .
[2020-06-19] MEDS ORDERED: FLUTICASONE NASAL SPRAY 16GM NAS PRN (22:30)
[2020-06-19] MEDS ORDERED: ONDANSETRON ODT 4 MG PO PRN (22:30)
[2020-06-19] MEDS ORDERED: BISACODYL 10 MG SUPP PR PRN (22:30)
[2020-06-19] MEDS ORDERED: POLYETHYLENE GLYCOL 17 GM PACKET PO PRN (22:30)
[2020-06-19] MEDS: SODIUM CHLORIDE 0.9% 1,000 ML IV SCH (23:17)
[2020-06-19] MEDS: HEPARIN 5,000 UNITS/ML, 1ML SQ SCH (23:49)
[2020-06-19] MEDS: CARVEDILOL 12.5 MG TABLET PO SCH (23:49)
[2020-06-19 23:51] VITALS: BP 118/72
[2020-06-20] VITALS (7 sets, daily range): BP systolic 98–124; BP diastolic 57–70
[2020-06-20 04:40] LABS: BASOPHILS # (AUTO) 0.01 x10^3/uL (0-0.1); BASOPHILS % (AUTO) 0 % (0-1); EOSINOPHILS # (AUTO) 0.22 x10^3/uL (0-0.4); EOSINOPHILS % (AUTO) 4 % (1-7); LYMPHOCYTES % (AUTO) 35 % (22-44); MD NO; MEAN CORPUSCULAR HEMOGLOBIN 27.9 pg (27.0-34.8); MEAN CORPUSCULAR HGB CONC 32.7 g/dL (32.4-35.8); MEAN CORPUSCULAR VOLUME 85.2 fL (80-100); MEAN PLATELET VOLUME 6.5 fL (7.4-10.4); MONOCYTES # (AUTO) 0.63 x10^3/uL (0.2-0.8); MONOCYTES % (AUTO) 12 % (2-9); NEUTROPHILS # (AUTO) 2.51 x10^3/uL (1.8-6.8); NEUTROPHILS % (AUTO) 49 % (42-75); PLATELET COUNT 318 x10^3/uL (130-400); RED BLOOD COUNT 3.63 x10^6/uL (3.82-5.3); RED CELL DISTRIBUTION WIDTH 15.6 % (9.6-15.2)
[2020-06-20 04:49] LABS: ANION GAP 6 mmol/L (5-15); CALCIUM 8.4 mg/dL (8.5-10.1); CHLORIDE 105 mmol/L (98-107); CREATININE 1.12 mg/dL (0.55-1.02)
[2020-06-20] MEDS: AMLODIPINE 5 MG TABLET PO SCH (08:57)
[2020-06-20] MEDS: ATORVASTATIN 20 MG TABLET PO SCH (08:57)
[2020-06-20] MEDS: FUROSEMIDE 40 MG TABLET PO SCH (08:57)
[2020-06-20] MEDS: LISINOPRIL 5 MG TABLET PO SCH (08:57)
[2020-06-20] MEDS: HEPARIN 5,000 UNITS/ML, 1ML SQ SCH ×2 (08:57→17:02)
[2020-06-20] MEDS: SENNA/DOCUSATE TABLET PO SCH (08:57)
[2020-06-20] MEDS: LEVOTHYROXINE 75 MCG TABLET PO SCH (08:58)
[2020-06-20] MEDS: CARVEDILOL 12.5 MG TABLET PO SCH ×2 (08:58→22:24)
[2020-06-20] MEDS: AMITRIPTYLINE 10 MG TABLET PO SCH (08:58)
[2020-06-20] MEDS: PANTOPRAZOLE 40MG TABLET PO SCH (08:58)
[2020-06-20] MEDS: FLUOXETINE HCL 20 MG CAPSULE PO SCH (08:58)
[2020-06-20] MEDS: ACETAMINOPHEN 325 MG TABLET PO PRN ×2 (14:04→21:18)
[2020-06-20] MEDS: SODIUM CHLORIDE 0.9% 1,000 ML IV SCH (17:04)
[2020-06-20] MEDS: CEFTRIAXONE PMX 1GM/50ML 50 ML IV SCH (21:19)
[2020-06-20] MEDS: AZITHROMYCIN 500 MG in SODIUM CHLORIDE 0.9% 250 ML IV SCH (22:25)
[2020-06-21] MEDS: HEPARIN 5,000 UNITS/ML, 1ML SQ SCH ×3 (00:14→15:47)
[2020-06-21 00:20] VITALS: BP 120/79
[2020-06-21 05:07] LABS: MEAN CORPUSCULAR HEMOGLOBIN 28.1 pg (27.0-34.8); MEAN CORPUSCULAR HGB CONC 32.8 g/dL (32.4-35.8); MEAN CORPUSCULAR VOLUME 85.5 fL (80-100); MEAN PLATELET VOLUME 6.6 fL (7.4-10.4); PLATELET COUNT 320 x10^3/uL (130-400); RED BLOOD COUNT 3.72 x10^6/uL (3.82-5.3)
[2020-06-21 05:11] LABS: ANION GAP 6 mmol/L (5-15); CALCIUM 8.6 mg/dL (8.5-10.1); CHLORIDE 111 mmol/L (98-107); CREATININE 0.84 mg/dL (0.55-1.02)
[2020-06-21 05:43] LABS: MD YES
[2020-06-21 05:46] LABS: EOS#(MANUAL) 0.12 x10^3/uL (0.0-0.4); EOS% (MANUAL) 3 % (1-7); LYMPH#(MANUAL) 1.68 x10^3/uL (1-3.4); LYMPHS% (MANUAL) 43 % (22-44); MONOS#(MANUAL) 0.43 x10^3/uL (0.3-2.7); MONOS% (MANUAL) 11 % (2-9); SEG#(MANUAL) 1.68 x10^3/uL (1.8-6.8); SEGS% (MANUAL) 43 % (42-75)
[2020-06-21 05:47] LABS: ANISOCYTOSIS 1+; OVALOCYTES 1+
[2020-06-21 05:48] LABS: <PLATELET ESTIMATE> ADEQUATE; <PLT MORPHOLOGY> NORMAL PLT MORPH
[2020-06-21 06:17] VITALS: BP 121/65
[2020-06-21] MEDS: PANTOPRAZOLE 40MG TABLET PO SCH (06:20)
[2020-06-21] MEDS: LEVOTHYROXINE 75 MCG TABLET PO SCH (06:20)
[2020-06-21] MEDS: SENNA/DOCUSATE TABLET PO SCH (09:00)
[2020-06-21] MEDS: CARVEDILOL 12.5 MG TABLET PO SCH ×2 (09:00→21:22)
[2020-06-21] MEDS: ATORVASTATIN 20 MG TABLET PO SCH (09:37)
[2020-06-21] MEDS: FUROSEMIDE 40 MG TABLET PO SCH (09:38)
[2020-06-21] MEDS: AMLODIPINE 5 MG TABLET PO SCH (09:38)
[2020-06-21] MEDS: FLUOXETINE HCL 20 MG CAPSULE PO SCH (09:39)
[2020-06-21] MEDS: LISINOPRIL 5 MG TABLET PO SCH (09:39)
[2020-06-21] MEDS: AMITRIPTYLINE 10 MG TABLET PO SCH (09:39)
[2020-06-21 12:34] VITALS: BP 115/69
[2020-06-21] MEDS: ACETAMINOPHEN 325 MG TABLET PO PRN ×2 (13:02→21:27)
[2020-06-21 19:48] VITALS: BP 124/86
[2020-06-21] MEDS: CEFTRIAXONE PMX 1GM/50ML 50 ML IV SCH (21:22)
[2020-06-21] MEDS: AZITHROMYCIN 500 MG in SODIUM CHLORIDE 0.9% 250 ML IV SCH (23:33)
[2020-06-22] MEDS: HEPARIN 5,000 UNITS/ML, 1ML SQ SCH ×3 (00:24→16:32)
[2020-06-22 01:04] VITALS: BP 104/60
[2020-06-22] MEDS: PANTOPRAZOLE 40MG TABLET PO SCH (05:18)
[2020-06-22] MEDS: LEVOTHYROXINE 75 MCG TABLET PO SCH (05:18)
[2020-06-22 06:28] VITALS: BP 116/75
[2020-06-22 06:55] LABS: C-REACTIVE PROTEIN, QUANT 0.5 mg/dL (0.02-0.49)
[2020-06-22] MEDS: LISINOPRIL 5 MG TABLET PO SCH (09:04)
[2020-06-22] MEDS: AMITRIPTYLINE 10 MG TABLET PO SCH (09:04)
[2020-06-22] MEDS: ATORVASTATIN 20 MG TABLET PO SCH (09:04)
[2020-06-22] MEDS: CARVEDILOL 12.5 MG TABLET PO SCH (09:04)
[2020-06-22] MEDS: AMLODIPINE 5 MG TABLET PO SCH (09:04)
[2020-06-22] MEDS: FLUOXETINE HCL 20 MG CAPSULE PO SCH (09:04)
[2020-06-22] MEDS: SENNA/DOCUSATE TABLET PO SCH (09:05)
[2020-06-22] MEDS: FUROSEMIDE 40 MG TABLET PO SCH (10:15)
[2020-06-22] MEDS: ACETAMINOPHEN 325 MG TABLET PO PRN (10:57)
[2020-06-22 12:06] VITALS: BP 112/73
[2020-06-22] MEDS ORDERED: CEFD300C37 PO (17:01)
[2020-06-22] MEDS ORDERED: AZIT500T PO (17:01)
== END 2020-06-22 17:55 | disposition home or self-care (01) | DRG 193 ==
LOC: ED 18:28 → EDIP 22:20 → 4NW 22:32 → 3N 06-20 13:54
PROVIDERS: ADMIT Family Medicine; ATTEND Hospitalist
DX: J15.9 Unspecified bacterial pneumonia (principal); J96.01 Acute respiratory failure with hypoxia; E87.1 Hypo-osmolality and hyponatremia; Z20.828 Contact with and (suspected) exposure to other viral communicable diseases; Z88.0 Allergy status to penicillin; Z91.018 Allergy to other foods; D64.9 Anemia, unspecified; E03.9 Hypothyroidism, unspecified; E78.5 Hyperlipidemia, unspecified; E86.1 Hypovolemia; G25.81 Restless legs syndrome; I10 Essential (primary) hypertension; I37.1 Nonrheumatic pulmonary valve insufficiency; J32.0 Chronic maxillary sinusitis; K59.00 Constipation, unspecified; M16.0 Bilateral primary osteoarthritis of hip; R29.6 Repeated falls; S70.01XA Contusion of right hip, initial encounter; Z86.73 Personal history of transient ischemic attack (TIA), and cerebral infarction without residual deficits; Z90.710 Acquired absence of both cervix and uterus; W18.39XA Other fall on same level, initial encounter; Y93.89 Activity, other specified; Y92.89 Other specified places as the place of occurrence of the external cause; Y99.8 Other external cause status
CPT/HCPCS: 36415; 70450; 71046; 72110; 72125; 73523; 80048; 80053; 81001; 82728; 83605; 83615; 84145; 84484; 85025; 85379; 86140; 87040; 87086; 87635; 93005; 93306; 96365; 96367; 99285; G0378; J0456; J0696; J1644; J7030; J7050